=== PATIENT | female | born 1990 | race Two or more races ===

== ENCOUNTER 2024-04-23 11:42 | Inpatient (IN) | payer OTHER ==
[~2024-04-23] VITALS: Ht 177.8 cm; Wt 114.3 kg
[2024-04-23] MEDS ORDERED: TRAM1TAB98 PO (11:48)
[2024-04-23] MEDS ORDERED: 0.9 % SODIUM CHLORIDE 1,000 ML IV SCH (13:00)
[2024-04-23] MEDS ORDERED: MORPHINE SULFATE 4 MG/ML VIAL IV PRN (13:00)
[2024-04-23 13:34] LABS: HEMATOCRIT 36.2 % (36.0-45.00); HEMOGLOBIN 11.5 g/dL (12.0-15.00); MEAN CELL VOLUME 85.3 fL (80.00-100.00); MEAN CORPUSCULAR HEMOGLOBIN 27.1 pg (27.00-32.0); MEAN CORPUSCULAR HGB CONC 31.7 g/dl (32.0-36.0); PLATELET COUNT 365 K/uL (150-450); RED BLOOD COUNT 4.24 M/uL (4.00-6.00); RED CELL DISTRIBUTION WIDTH 17.3 % (11.5-14.5)
[2024-04-23 13:56] LABS: PARTIAL THROMBOPLASTIN TIME 24.7 SECONDS (22.0-34.0); PROTHROMBIN TIME 10.9 SECONDS (9.0-11.5)
[2024-04-23 14:05] LABS: ALBUMIN 3.3 gm/dL (3.4-5.0); BILIRUBIN TOTAL 0.19 mg/dL (0.3-1.2); CALCIUM 8.1 mg/dL (8.5-10.1); CREATININE SERUM 0.93 mg/dL (0.55-1.02); GFR 69.86; GLOBULINA 3.5 G/DL (2.4-3.5); POTASSIUM 3.42 mEq/L (3.5-5.1); TOTAL PROTEIN 6.8 gm/dL (6.4-8.2)
[2024-04-23 14:17] LABS: PH,URINE 6.5 (5.0-8.0); URINE APPEARANCE Clear; URINE BILIRRUBIN Negative (NEGATIVE); URINE BLOOD Negative; URINE COLOR Yellow; URINE GLUCOSE Negative (NEGATIVE); URINE KETONE Negative (NEGATIVE); URINE LEUKOCYTE Negative; URINE NITRATE Negative; URINE PROTEIN Negative (NEGATIVE); URINE UROBILINOGEN 0.2 E.U./dl
[2024-04-23 14:21] LABS: URINE BACTERIA 113.7 uL (0.0-1933); URINE RBC 2.9 uL (0.0-20.8)
[2024-04-23 14:57] LABS: URINE CAST 0.14 uL (0.0-1.40)
[2024-04-23 23:31] VITALS: BP 148/88; O2SAT 96
[2024-04-24] MEDS ORDERED: CEFOXITIN SODIUM IV SCH
[2024-04-24] MEDS ORDERED: SODIUM CHLORIDE 0.9% IV SCH
[2024-04-24] MEDS ORDERED: FAMOTIDINE/PF 20 MG/2 ML VIAL ONE ×2 (07:44→20:16)
[2024-04-24 08:07] VITALS: BP 146/86; O2SAT 100
[2024-04-24] MEDS ORDERED: POTASSIUM CHLORIDE IN WATER 40 MEQ/100 ML PIGGYBAG IV NR (08:30)
[2024-04-24] MEDS ORDERED: MAGNESIUM SULFATE/D5W 1GM/100ML PIGGYBAG IV NR (08:30)
[2024-04-24] MEDS ORDERED: ONDANSETRON HCL 4 MG in 0.9 % SODIUM CHLORIDE 50 ML IV PRN (08:30)
[2024-04-24] MEDS ORDERED: hydrALAZINE HCL 20 MG VIAL IV PRN (08:30)
[2024-04-24] MEDS ORDERED: RINGERS SOLUTION,LACTATED 1,000 ML IV SCH ×2 (08:30→15:45)
[2024-04-24] MEDS ORDERED: PANTOPRAZOLE SODIUM 40 MG/VIAL VIAL IV PUSH SCH (09:00)
[2024-04-24] MEDS ORDERED: METOPROLOL SUCCINATE 25 MG TAB.SR.24H PO SCH (09:00)
[2024-04-24] MEDS ORDERED: POVIDONE-IODINE 118 ML BOTT TOP ONE (12:38)
[2024-04-24] MEDS ORDERED: BUPIVACAINE HCL/MPF 0.5% 30ML VIAL ONE (12:38)
[2024-04-24] MEDS ORDERED: LIDOCAINE HCL 1%/EPINEPHRINE 20ML VIAL IJ ONE (12:38)
[2024-04-24] MEDS ORDERED: CEFOXITIN SODIUM 2,000 MG VIAL IV ONE ×2 (12:55→19:17)
[2024-04-24] MEDS ORDERED: ONDANSETRON HCL 2 MG/ML VIAL IV PRN (15:45)
[2024-04-24] MEDS ORDERED: MORPHINE SULFATE 4 MG/ML CARTRIDGE IV PRN (15:45)
[2024-04-24] MEDS ORDERED: KETOROLAC TROMETHAMINE 30 MG VIAL IV PRN (15:45)
[2024-04-24] MEDS ORDERED: MORPHINE SULFATE 4 MG/ML VIAL IV ONE ×3 (16:25→22:30)
[2024-04-24] MEDS ORDERED: ONDANSETRON HCL 2 MG/ML VIAL ONE (16:26)
[2024-04-24] MEDS ORDERED: SIMETHICONE 125 MG CAPSULE PO SCH (18:00)
[2024-04-24 18:23] VITALS: O2SAT 100
[2024-04-24] MEDS ORDERED: KETOROLAC TROMETHAMINE 30 MG VIAL ONE (19:17)
[2024-04-24] MEDS ORDERED: SIMETHICONE 125 MG CAPSULE PO ONE (20:16)
[2024-04-24 20:58] LABS: HEMATOCRIT 37.3 % (36.0-45.00); HEMOGLOBIN 11.9 g/dL (12.0-15.00); MEAN CELL VOLUME 84.7 fL (80.00-100.00); MEAN CORPUSCULAR HEMOGLOBIN 26.9 pg (27.00-32.0); MEAN CORPUSCULAR HGB CONC 31.8 g/dl (32.0-36.0); PLATELET COUNT 366 K/uL (150-450); RED BLOOD COUNT 4.41 M/uL (4.00-6.00); RED CELL DISTRIBUTION WIDTH 17.3 % (11.5-14.5)
[2024-04-24] MEDS ORDERED: FAMOTIDINE/PF 20 MG/2 ML VIAL IV SCH (21:00)
[2024-04-24 21:03] VITALS: BP 140/90
[2024-04-25] VITALS: BP 138/84
[2024-04-25 04:00] VITALS: BP 137/82
[2024-04-25] MEDS ORDERED: ACETAMINOPHEN WITH CODEINE 1 UDTAB TABLET PO SCH (06:18)
[2024-04-25 08:00] VITALS: BP 139/75
[2024-04-25] MEDS ORDERED: KETOROLAC TROMETHAMINE 30 MG VIAL IV SCH (08:00)
[2024-04-25] MEDS ORDERED: ACETAMINOPHEN WITH CODEINE 1 UDTAB TABLET PO PRN (08:58)
[2024-04-25] MEDS ORDERED: ENOXAPARIN SODIUM 30 MG/0.3 ML SYRINGE SUBCUTANEO SCH (09:00)
[2024-04-25] MEDS ORDERED: FAMOtidine 20 MG TABLET PO SCH (09:00)
[2024-04-25] MEDS ORDERED: DOCUSATE SODIUM 100MG CAP PO SCH (09:00)
[2024-04-25] MEDS ORDERED: NAPROXEN 500 MG TABLET PO PRN (09:00)
[2024-04-25 17:00] VITALS: BP 144/90
[2024-04-25 23:56] VITALS: BP 108/70
[2024-04-26 04:30] VITALS: BP 133/86
[2024-04-26 09:26] VITALS: BP 145/98
[2024-04-26 12:39] VITALS: BP 140/90
[2024-04-26 15:27] VITALS: BP 145/89
[2024-04-26 19:13] VITALS: BP 145/90
[2024-04-27] VITALS: BP 125/84
[2024-04-27 05:00] VITALS: BP 136/89
[2024-04-27 08:09] VITALS: BP 149/96
[2024-04-27] MEDS ORDERED: Tylenol #3 PO (10:59)
[2024-04-27] MEDS ORDERED: NAPR500T14 PO (10:59)
== END 2024-04-27 12:00 | disposition home or self-care (01) | DRG 743 ==
LOC: ER 11:44 → OB/GYN 14:56 → SEC-K 14:56 → O/R 04-24 09:55 → OB/GYN 04-24 17:59
PROVIDERS: General Practice; ADMIT Obstetrics & Gynecology; ATTEND Obstetrics & Gynecology
PROC: BW30YZZ Magnetic Resonance Imaging (MRI) of Abdomen using Other Contrast (ICD-10-PCS; 2024-04-23)
PROC: BW30ZZZ Magnetic Resonance Imaging (MRI) of Abdomen (ICD-10-PCS; 2024-04-23)
PROC: BW3GZZZ Magnetic Resonance Imaging (MRI) of Pelvic Region (ICD-10-PCS; 2024-04-23)
PROC: BW3GYZZ Magnetic Resonance Imaging (MRI) of Pelvic Region using Other Contrast (ICD-10-PCS; 2024-04-23)
PROC: 0UB90ZZ Excision of Uterus, Open Approach (ICD-10-PCS; principal; 2024-04-24 10:00)
DX: D25.9 Leiomyoma of uterus, unspecified (principal); R10.2 Pelvic and perineal pain; I10 Essential (primary) hypertension; Z90.710 Acquired absence of both cervix and uterus
CPT/HCPCS: 72196; 74182